=== PATIENT | female | born 1990 | race Caucasian/White ===

== ENCOUNTER 2021-07-20 02:34 | Emergency (ER) | payer MEDICAID ==
[~2021-07-20] VITALS: Ht 165.1 cm; Wt 127.0 kg
[2021-07-20] MEDS ORDERED: ACETAMINOPHEN 325MG TABLET PO ONE (03:00)
[2021-07-20] MEDS ORDERED: MORPHINE SULFATE 4 MG/ML CPJ (NOT FOR IM USE) IV ONE (03:45)
[2021-07-20] MEDS ORDERED: ONDANSETRON HCL 4MG/2ML INJ IV ONE (03:45)
[2021-07-20 03:53] LABS: BASOPHILS % 0.6 % (0.0-2.0); EOSINOPHILS % 1.4 % (0.0-5.0); HEMATOCRIT. 43.3 % (36.0-48.0); LYMPHOCYTES % 24.1 % (20.0-50.0); MEAN CORPUSCULAR HEMOGLOBIN 29.4 pg (28.0-32.0); MEAN CORPUSCULAR VOLUME 84.5 fL (81.0-99.0); MEAN PLATELET VOLUME 7.9 fl (7.4-10.4); NEUTROPHILS % 66.9 % (40.0-76.0); PLATELET 289 x1000/uL (130-400); RED BLOOD CELL COUNT 5.12 mill/uL (4.2-5.4); RED CELL DISTRIBUTION WIDTH 12.8 % (11.6-14.6)
[2021-07-20 04:14] LABS: CLARITY URINE CLOUDY (CLEAR); COLOR URINE RED (YELLOW); KETONES URINE NEGATIVE (NEGATIVE); LEUKOCYTE ESTERASE URINE 1+ (NEGATIVE); NITRITE URINE NEGATIVE (NEGATIVE); OCCULT BLOOD URINE 3+ (NEGATIVE); PROTEIN URINE 3+ (NEGATIVE); SPECIFIC GRAVITY URINE 1.008 (1.005-1.030); UROBILINOGEN URINE 0.2 E.U./dL (0.2-1.0)
[2021-07-20 04:20] LABS: CHLORIDE 108 mEq/L (98-107)
[2021-07-20 04:31] LABS: B-HCG QUANTITATIVE < 1 mIU/mL (<3)
[2021-07-20] MEDS ORDERED: NAPR-1176 MT (06:02)
[2021-07-20] MEDS ORDERED: KETOROLAC 15MG/ML VIAL IV ONE (06:15)
[2021-07-20 06:25] VITALS: BP 110/74
== END 2021-07-20 06:44 | disposition home or self-care (01) ==
LOC: ER 02:34
DX: R10.2 Pelvic and perineal pain (principal); R10.9 Unspecified abdominal pain; N93.9 Abnormal uterine and vaginal bleeding, unspecified; N83.201 Unspecified ovarian cyst, right side; D25.9 Leiomyoma of uterus, unspecified
CPT/HCPCS: 36415; 76830; 76856; 80053; 81003; 81025; 84702; 85025; 86850; 86900; 86901; 96374; 96375; 99284; J1885; J2270; J2405

== ENCOUNTER 2021-10-24 02:06 | Inpatient (IN) | payer MEDICAID ==
[~2021-10-24] VITALS: Ht 165.1 cm; Wt 136.6 kg
[~2021-10-24 02:06] MED LIST: NAPR-1176 MT
[2021-10-24] MEDS ORDERED: MORPHINE SULFATE 4 MG/ML CPJ (NOT FOR IM USE) IV STA (05:35)
[2021-10-24 06:03] LABS: CHLORIDE 104 mEq/L (98-107); HCG SCREEN NEGATIVE
[2021-10-24 06:04] LABS: BASOPHILS % 0.8 % (0.0-2.0); EOSINOPHILS % 1.9 % (0.0-5.0); HEMATOCRIT. 39.6 % (36.0-48.0); HEMOGLOBIN. 13.3 g/dL (12.0-16.0); LYMPHOCYTES % 23.7 % (20.0-50.0); MEAN CORPUSCULAR HEMOGLOBIN 29.3 pg (28.0-32.0); MEAN CORPUSCULAR VOLUME 87.4 fL (81.0-99.0); MEAN PLATELET VOLUME 7.9 fl (7.4-10.4); MONOCYTES % 5.7 % (2.0-8.0); NEUTROPHILS % 67.9 % (40.0-76.0); PLATELET 288 x1000/uL (130-400); RED BLOOD CELL COUNT 4.53 mill/uL (4.2-5.4); RED CELL DISTRIBUTION WIDTH 12.9 % (11.6-14.6)
[2021-10-24 06:50] LABS: CLARITY URINE CLEAR (CLEAR); COLOR URINE YELLOW (YELLOW); KETONES URINE NEGATIVE (NEGATIVE); LEUKOCYTE ESTERASE URINE NEGATIVE (NEGATIVE); NITRITE URINE NEGATIVE (NEGATIVE); OCCULT BLOOD URINE 3+ (NEGATIVE); PH URINE 5.5 (4.5-8.0); PROTEIN URINE 3+ (NEGATIVE); SPECIFIC GRAVITY URINE 1.018 (1.005-1.030); UROBILINOGEN URINE 0.2 E.U./dL (0.2-1.0)
[2021-10-24] MEDS ORDERED: MORPHINE SULFATE 4 MG/ML CPJ (NOT FOR IM USE) IV ONE (09:00)
[2021-10-24] MEDS ORDERED: PIPERACILLIN/TAZ 3.375G PREMIX 50 ML IV ONE (09:30)
[2021-10-24] MEDS ORDERED: PIPERACILLIN/TAZOBACTAM 3.375GM/50ML PREMIX IV ONE (09:30)
[2021-10-24] MEDS ORDERED: ACETAMINOPHEN 325MG TABLET PO PRN (13:15)
[2021-10-24] MEDS ORDERED: ONDANSETRON HCL 4MG/2ML INJ IV PRN (13:15)
[2021-10-24 14:00] VITALS: BP 143/97
[2021-10-24] MEDS: HYDROCODONE/ACETAMINOPHEN 5/325MG TABLET PO PRN ×2 (14:39→21:59)
[2021-10-24] MEDS ORDERED: NALOXONE HCL 0.4MG/ML VIAL IV PRN (16:00)
[2021-10-24] MEDS: KETOROLAC 30MG/ML VIAL IV PRN (17:33)
[2021-10-24] MEDS: MORPHINE SULFATE 2 MG/ML CPJ (NOT FOR IM USE) IV PRN (19:14)
[2021-10-25 03:28] VITALS: BP 123/64
[2021-10-25] MEDS: HYDROCODONE/ACETAMINOPHEN 5/325MG TABLET PO PRN ×2 (06:02→16:57)
[2021-10-25 06:19] VITALS: BP 128/62
[2021-10-25 08:00] VITALS: BP 137/71
[2021-10-25] MEDS: KETOROLAC 30MG/ML VIAL IV PRN ×2 (09:34→21:06)
[2021-10-25 12:00] VITALS: BP 120/79
[2021-10-25 16:00] VITALS: BP 126/51
[2021-10-25 20:00] VITALS: BP 137/76
[2021-10-26] VITALS: BP 127/72
[2021-10-26 04:00] VITALS: BP 121/62
[2021-10-26] MEDS: KETOROLAC 30MG/ML VIAL IV PRN ×2 (05:15→16:07)
[2021-10-26 08:00] VITALS: BP 132/77
[2021-10-26] MEDS: MORPHINE SULFATE 2 MG/ML CPJ (NOT FOR IM USE) IV PRN ×2 (08:06→19:58)
[2021-10-26] MEDS: HYDROCODONE/ACETAMINOPHEN 5/325MG TABLET PO PRN (11:44)
[2021-10-26 12:00] VITALS: BP 128/63
[2021-10-26 16:00] VITALS: BP 156/89
[2021-10-26 19:58] VITALS: BP 137/78
== END 2021-10-26 22:00 | disposition home or self-care (01) ==
LOC: ER 02:06 → 6EST 10:16 → ENRESERV 12:42
PROVIDERS: ADMIT Internal Medicine; ATTEND Internal Medicine
DX: K80.00 Calculus of gallbladder with acute cholecystitis without obstruction (principal); E44.1 Mild protein-calorie malnutrition; K76.0 Fatty (change of) liver, not elsewhere classified; E66.01 Morbid (severe) obesity due to excess calories; Z20.822 Contact with and (suspected) exposure to COVID-19; Z90.49 Acquired absence of other specified parts of digestive tract; Z68.43 Body mass index [BMI] 50.0-59.9, adult; Z79.899 Other long term (current) drug therapy
CPT/HCPCS: 36415; 74176; 76705; 78227; 80053; 81003; 84703; 85025; 99285; A9537; J1885; J2270; J2405; J2543

== ENCOUNTER 2022-06-01 16:42 | Emergency (ER) | payer MEDICAID ==
[~2022-06-01] VITALS: Ht 170.2 cm; Wt 122.0 kg
[2022-06-01 16:44] VITALS: BP 153/79
[2022-06-01] MEDS ORDERED: SODIUM CHLORIDE 0.9% 1,000 ML IV ONE (21:00)
[2022-06-01] MEDS ORDERED: OXYCODONE HCL/ACETAMINOPHEN 5/325MG TABLET PO ONE (21:45)
[2022-06-01] MEDS ORDERED: AMOXICILLIN/POTASSIUM CLAVULANATE 875/125MG TAB PO ONE (21:45)
[2022-06-01] MEDS ORDERED: T3 PO (21:49)
[2022-06-01] MEDS ORDERED: AMOX1TAB16 PO (21:49)
[2022-06-01 22:11] LABS: BASOPHILS % 0.5 % (0.0-2.0); EOSINOPHILS % 0.5 % (0.0-5.0); HEMATOCRIT. 35.5 % (36.0-48.0); HEMOGLOBIN. 12.2 g/dL (12.0-16.0); LYMPHOCYTES % 10.7 % (20.0-50.0); MEAN CORPUSCULAR HEMOGLOBIN 29.3 pg (28.0-32.0); MEAN CORPUSCULAR VOLUME 85.4 fL (81.0-99.0); MEAN PLATELET VOLUME 7.7 fl (7.4-10.4); NEUTROPHILS % 84.3 % (40.0-76.0); PLATELET 244 x1000/uL (130-400); RED BLOOD CELL COUNT 4.16 mill/uL (4.2-5.4)
[2022-06-01 22:21] LABS: CHLORIDE 105 mEq/L (98-107)
[2022-06-01 22:25] LABS: HCG SCREEN POSITIVE
== END 2022-06-02 | disposition home or self-care (01) ==
LOC: ER 16:42
DX: H60.11 Cellulitis of right external ear (principal); Z90.49 Acquired absence of other specified parts of digestive tract
CPT/HCPCS: 36415; 70480; 80048; 83605; 84145; 84703; 85025; 87040; 96360; 96361; 99291; J7030

== ENCOUNTER 2022-10-04 00:06 | Observation (INO) | payer MEDICAID ==
[~2022-10-04] VITALS: Ht 165.1 cm; Wt 128.4 kg
[~2022-10-04 00:06] MED LIST changes: +AMOX1TAB16 PO; +T3 PO
[2022-10-04] MEDS ORDERED: CEFAZOLIN 2,000 MG in DEXT 5% WATER 100 ML IV NR (01:30)
[2022-10-04] MEDS: LACTATED RINGERS 1,000 ML IV SCH ×2 (03:34→04:27)
[2022-10-04 04:13] LABS: CLARITY URINE CLOUDY (CLEAR); COLOR URINE YELLOW (YELLOW); KETONES URINE NEGATIVE (NEGATIVE); LEUKOCYTE ESTERASE URINE TRACE (NEGATIVE); NITRITE URINE NEGATIVE (NEGATIVE); OCCULT BLOOD URINE 3+ (NEGATIVE); PH URINE 5.5 (4.5-8.0); PROTEIN URINE 2+ (NEGATIVE); SPECIFIC GRAVITY URINE 1.009 (1.005-1.030); UROBILINOGEN URINE 0.2 E.U./dL (0.2-1.0)
== END 2022-10-04 09:50 | disposition home or self-care (01) ==
LOC: 8 EST LDRP 00:06
PROVIDERS: ADMIT Obstetrics & Gynecology; ATTEND Obstetrics & Gynecology
DX: O99.891 Other specified diseases and conditions complicating pregnancy (principal); M54.50 Low back pain, unspecified; O26.893 Other specified pregnancy related conditions, third trimester; R10.2 Pelvic and perineal pain; Z3A.33 33 weeks gestation of pregnancy
CPT/HCPCS: 59025; 96361; 96365; 81003; 76818; 76805; J0690; J7060; G0378 ×2; 96360; 99281

== ENCOUNTER 2022-10-09 13:19 | Observation (INO) | payer MEDICAID ==
[~2022-10-09] VITALS: Ht 165.1 cm; Wt 136.1 kg
[2022-10-10] MEDS ORDERED: LABE100T9 PO (20:17)
[2022-10-10] MEDS ORDERED: PREN-176 PO (20:17)
== END 2022-10-09 15:45 | disposition home or self-care (01) ==
LOC: 8 EST LDRP 13:19
PROVIDERS: ADMIT Obstetrics & Gynecology; ATTEND Obstetrics & Gynecology
DX: O42.913 Preterm premature rupture of membranes, unspecified as to length of time between rupture and onset of labor, third trimester (principal); O26.893 Other specified pregnancy related conditions, third trimester; N89.8 Other specified noninflammatory disorders of vagina; O62.9 Abnormality of forces of labor, unspecified; O36.8330 Maternal care for abnormalities of the fetal heart rate or rhythm, third trimester, not applicable or unspecified; Z3A.32 32 weeks gestation of pregnancy
CPT/HCPCS: 59025; 76815; 76818; G0378; 99281; G0379

== ENCOUNTER 2022-10-10 19:41 | Observation (INO) | payer MEDICAID ==
[~2022-10-10] VITALS: Ht 165.1 cm; Wt 136.1 kg
[2022-10-10] MEDS ORDERED: PREN-176 PO (20:17)
[2022-10-10] MEDS ORDERED: LABE100T9 PO (20:17)
== END 2022-10-10 23:00 | disposition home or self-care (01) ==
LOC: 8 EST LDRP 19:41
PROVIDERS: ADMIT Specialist; ATTEND Specialist
DX: O36.8130 Decreased fetal movements, third trimester, not applicable or unspecified (principal); Z3A.33 33 weeks gestation of pregnancy; Z98.891 History of uterine scar from previous surgery
CPT/HCPCS: 59025; 76815; 76818; G0378; 99281

== ENCOUNTER 2022-11-12 23:33 | Emergency (ER) | payer MEDICAID ==
[~2022-11-12] VITALS: Ht 165.1 cm; Wt 127.0 kg
[~2022-11-12 23:33] MED LIST changes: -AMOX1TAB16 PO; +IBUP-2028 PO; +LABE100T9 PO; -NAPR-1176 MT; +PREN-176 PO; -T3 PO
[2022-11-12 23:52] VITALS: O2SAT 98
[2022-11-13 00:37] VITALS: TEMP 98.4
[2022-11-13 01:05] LABS: BASOPHILS % 0.5 % (0.0-2.0); EOSINOPHILS % 2.1 % (0.0-5.0); HEMATOCRIT. 30.2 % (36.0-48.0); HEMOGLOBIN. 10.1 g/dL (12.0-16.0); LYMPHOCYTES % 16.8 % (20.0-50.0); MEAN CORPUSCULAR HEMOGLOBIN 31.7 pg (28.0-32.0); MEAN CORPUSCULAR VOLUME 94.9 fL (81.0-99.0); MEAN PLATELET VOLUME 7.2 fl (7.4-10.4); MONOCYTES % 7.8 % (2.0-8.0); NEUTROPHILS % 72.8 % (40.0-76.0); PLATELET 211 x1000/uL (130-400); RED BLOOD CELL COUNT 3.18 mill/uL (4.2-5.4); RED CELL DISTRIBUTION WIDTH 14.5 % (11.6-14.6)
[2022-11-13 01:16] LABS: CHLORIDE 108 mEq/L (98-107)
[2022-11-13] MEDS ORDERED: MORPHINE SULFATE 4 MG/ML CPJ (NOT FOR IM USE) IV STA (01:17)
[2022-11-13] MEDS ORDERED: SODIUM CHLORIDE 0.9% 1,000 ML IV ONE (01:30)
[2022-11-13 01:38] LABS: HCG SCREEN POSITIVE
[2022-11-13] MEDS ORDERED: IOHEXOL-300 100 ML BOTTLE ONE (03:10)
[2022-11-13 03:48] LABS: CLARITY URINE CLEAR (CLEAR); COLOR URINE YELLOW (YELLOW); KETONES URINE NEGATIVE (NEGATIVE); LEUKOCYTE ESTERASE URINE NEGATIVE (NEGATIVE); NITRITE URINE NEGATIVE (NEGATIVE); OCCULT BLOOD URINE 3+ (NEGATIVE); PH URINE 5.5 (4.5-8.0); PROTEIN URINE 1+ (NEGATIVE); SPECIFIC GRAVITY URINE 1.008 (1.005-1.030); UROBILINOGEN URINE 0.2 E.U./dL (0.2-1.0)
[2022-11-13] MEDS ORDERED: MORPHINE SULFATE 4 MG/ML CPJ (NOT FOR IM USE) IV ONE (05:15)
[2022-11-13 05:30] VITALS: BP 144/77; PULSE 80; RESP 18
== END 2022-11-13 05:45 | disposition left against medical advice (07) ==
LOC: ER 23:33
DX: R10.9 Unspecified abdominal pain (principal); Z98.890 Other specified postprocedural states; Z90.49 Acquired absence of other specified parts of digestive tract; Z53.29 Procedure and treatment not carried out because of patient's decision for other reasons
CPT/HCPCS: 99285; 74177; 96374; 96361; 80053; 81003; 84703; 85025; 36415; 96376; Q9967; J2270; J7030

== ENCOUNTER 2024-04-26 08:26 | Emergency (ER) | payer MEDICAID ==
[~2024-04-26] VITALS: Ht 165.1 cm; Wt 122.0 kg
[2024-04-26 08:35] VITALS: O2SAT 99
[2024-04-26 08:41] VITALS: TEMP 98.7; O2SAT 99
[2024-04-26 10:07] LABS: BASOPHILS % 0.8 % (0.0-2.0); EOSINOPHILS % 1.4 % (0.0-5.0); HEMATOCRIT. 41.4 % (36.0-48.0); HEMOGLOBIN. 13.6 g/dL (12.0-16.0); LYMPHOCYTES % 20.1 % (20.0-50.0); MEAN CORPUSCULAR HEMOGLOBIN 28.2 pg (28.0-32.0); MEAN CORPUSCULAR HGB CONC 32.9 g/dL (31.0-37.0); MEAN CORPUSCULAR VOLUME 85.9 fL (81.0-99.0); MEAN PLATELET VOLUME 7.7 fl (7.4-10.4); MONOCYTES % 6.1 % (2.0-8.0); NEUTROPHILS % 71.6 % (40.0-76.0); PLATELET 227 x1000/uL (130-400); RED BLOOD CELL COUNT 4.82 mill/uL (4.2-5.4); RED CELL DISTRIBUTION WIDTH 13.4 % (11.6-14.6)
[2024-04-26 10:19] LABS: CHLORIDE 106 mEq/L (98-107); POTASSIUM 4.6 mEq/L (3.5-5.1); SODIUM 139 mEq/L (136-145)
[2024-04-26 10:21] LABS: CARBON DIOXIDE 28 mEq/L (21-32)
[2024-04-26 10:22] LABS: CALCIUM 9.2 mg/dL (8.7-10.4)
[2024-04-26 10:26] LABS: CREATININE 1.1 mg/dL (0.6-1.0)
[2024-04-26 10:27] LABS: GLUCOSE 86 mg/dL (70-105); UREA NITROGEN BLOOD 13 mg/dL (9-23)
[2024-04-26 10:28] LABS: ALANINE AMINOTRANSFERASE 17 IU/L (10-49); ALBUMIN 3.9 g/dL (3.2-4.8); ASPARTATE AMINOTRANSFERASE 21 IU/L (<34)
[2024-04-26 10:29] LABS: BILIRUBIN DIRECT 0.1 mg/dL (<=3.0); BILIRUBIN TOTAL 0.5 mg/dL (0.1-1.0); PROTEIN TOTAL 6.8 g/dL (6.0-8.3)
[2024-04-26 10:46] VITALS: BP 146/92; PULSE 64; RESP 16
[2024-04-26] MEDS: KETOROLAC 30MG/ML VIAL IM ONE (10:46)
[2024-04-26 10:47] LABS: CLARITY URINE CLEAR (CLEAR); COLOR URINE YELLOW (YELLOW); GLUCOSE URINE NEGATIVE (NEGATIVE); KETONES URINE NEGATIVE (NEGATIVE); LEUKOCYTE ESTERASE URINE NEGATIVE (NEGATIVE); NITRITE URINE NEGATIVE (NEGATIVE); OCCULT BLOOD URINE 3+ (NEGATIVE); PROTEIN URINE 4+ (NEGATIVE); UROBILINOGEN URINE 0.2 E.U./dL (0.2-1.0)
[2024-04-26] MEDS ORDERED: DICY-18 MT (11:22)
[2024-04-26] MEDS ORDERED: ONDA-239 PO (11:22)
[2024-04-26 12:13] LABS: SQUAMOUS EPITHELIAL CELL URINE 1+ /lpf (RARE/1+)
[2024-04-26 12:15] LABS: BACTERIA URINE 1+; MUCUS URINE TRACE /lpf (< = 2+)
[2024-04-26 12:16] LABS: WBC URINE 0-2 /hpf (0-2)
[2024-04-26] MEDS ORDERED: PANT40TA51 MT (22:07)
== END 2024-04-26 11:34 | disposition home or self-care (01) ==
LOC: ER 08:26
DX: K29.70 Gastritis, unspecified, without bleeding (principal); A08.4 Viral intestinal infection, unspecified; Z90.49 Acquired absence of other specified parts of digestive tract; Z79.899 Other long term (current) drug therapy
CPT/HCPCS: 80076; 80048; 81003; 81025; 83690; 85025; 36415; 96372; 99283; J1885; Z7610

== ENCOUNTER 2024-04-26 17:50 | Emergency (ER) | payer MEDICAID ==
[~2024-04-26] VITALS: Ht 165.1 cm; Wt 122.0 kg
[~2024-04-26 17:50] MED LIST changes: +DICY-18 MT; +ONDA-239 PO
[2024-04-26 18:05] VITALS: O2SAT 100
[2024-04-26 18:48] LABS: BASOPHILS % 0.6 % (0.0-2.0); EOSINOPHILS % 1.3 % (0.0-5.0); HEMATOCRIT. 40.3 % (36.0-48.0); HEMOGLOBIN. 13.5 g/dL (12.0-16.0); LYMPHOCYTES % 19.4 % (20.0-50.0); MEAN CORPUSCULAR HEMOGLOBIN 28.4 pg (28.0-32.0); MEAN CORPUSCULAR HGB CONC 33.5 g/dL (31.0-37.0); MEAN CORPUSCULAR VOLUME 84.8 fL (81.0-99.0); MEAN PLATELET VOLUME 8.2 fl (7.4-10.4); MONOCYTES % 4.6 % (2.0-8.0); NEUTROPHILS % 74.1 % (40.0-76.0); PLATELET 241 x1000/uL (130-400); RED BLOOD CELL COUNT 4.76 mill/uL (4.2-5.4); RED CELL DISTRIBUTION WIDTH 13.2 % (11.6-14.6)
[2024-04-26 18:56] LABS: CHLORIDE 105 mEq/L (98-107); POTASSIUM 4.2 mEq/L (3.5-5.1); SODIUM 139 mEq/L (136-145)
[2024-04-26 18:57] LABS: CALCIUM 8.8 mg/dL (8.7-10.4); CARBON DIOXIDE 24 mEq/L (21-32)
[2024-04-26 19:02] LABS: GLUCOSE 124 mg/dL (70-105); UREA NITROGEN BLOOD 20 mg/dL (9-23)
[2024-04-26 19:04] LABS: ALANINE AMINOTRANSFERASE 18 IU/L (10-49); ALBUMIN 3.9 g/dL (3.2-4.8); ASPARTATE AMINOTRANSFERASE 22 IU/L (<34); BILIRUBIN TOTAL 0.3 mg/dL (0.1-1.0); PROTEIN TOTAL 6.9 g/dL (6.0-8.3)
[2024-04-26 19:11] LABS: BILIRUBIN DIRECT < 0.1 mg/dL (<=3.0); CREATININE 1.5 mg/dL (0.6-1.0)
[2024-04-26] MEDS: MORPHINE SULFATE 4 MG/ML INJ (FOR IV/IM USE) IV STA (20:09)
[2024-04-26] MEDS: SODIUM CHLORIDE 0.9% 1,000 ML IV ONE (20:09)
[2024-04-26] MEDS ORDERED: PANT40TA51 MT (22:07)
[2024-04-26 22:46] VITALS: BP 124/47; PULSE 55; RESP 15; TEMP 36.78072; O2SAT 100
[2024-04-26] MEDS ORDERED: IOHEXOL-300 100 ML BOTTLE ONE (23:29)
== END 2024-04-26 22:47 | disposition home or self-care (01) ==
LOC: ER 17:50
DX: R10.13 Epigastric pain (principal); R11.2 Nausea with vomiting, unspecified; Z90.49 Acquired absence of other specified parts of digestive tract; Z98.890 Other specified postprocedural states; Z79.899 Other long term (current) drug therapy
CPT/HCPCS: 99285; 74177; 96374; 96361; 80076; 80048; 83690; 85025; 36415; Q9967; J2270; J7030

== ENCOUNTER 2025-03-18 01:31 | Emergency (ER) | payer MEDICAID ==
[~2025-03-18] VITALS: Ht 165.1 cm; Wt 123.0 kg
[~2025-03-18 01:31] MED LIST changes: +PANT40TA51 MT
[2025-03-18 01:38] VITALS: O2SAT 99
[2025-03-18 02:38] LABS: BASOPHILS % 0.6 % (0.0-2.0); EOSINOPHILS % 1.7 % (0.0-5.0); HEMATOCRIT. 39.8 % (36.0-48.0); HEMOGLOBIN. 13.3 g/dL (12.0-16.0); LYMPHOCYTES % 21.9 % (20.0-50.0); MEAN PLATELET VOLUME 8.1 fl (7.4-10.4); MONOCYTES % 5.8 % (2.0-8.0); NEUTROPHILS % 70.0 % (40.0-76.0); PLATELET 217 x1000/uL (130-400); RED BLOOD CELL COUNT 4.64 mill/uL (4.2-5.4); RED CELL DISTRIBUTION WIDTH 13.6 % (11.6-14.6)
[2025-03-18 02:48] LABS: UREA NITROGEN BLOOD 24.0 mg/dL (9-23)
[2025-03-18 03:04] LABS: CREATININE 2.0 mg/dL (0.6-1.0)
[2025-03-18 03:13] LABS: CLARITY URINE CLEAR (CLEAR); COLOR URINE YELLOW (YELLOW); PH URINE 5.0 (4.5-8.0); SPECIFIC GRAVITY URINE 1.012 (1.005-1.030)
[2025-03-18 03:14] LABS: GLUCOSE URINE NEGATIVE (NEGATIVE); KETONES URINE NEGATIVE (NEGATIVE); NITRITE URINE NEGATIVE (NEGATIVE); OCCULT BLOOD URINE 3+ (NEGATIVE); PROTEIN URINE 3+ (NEGATIVE); UROBILINOGEN URINE 0.2 E.U./dL (0.2-1.0)
[2025-03-18 03:15] LABS: LEUKOCYTE ESTERASE URINE TRACE (NEGATIVE)
[2025-03-18 03:28] LABS: SQUAMOUS EPITHELIAL CELL URINE FEW /lpf (RARE/1+)
[2025-03-18 03:34] LABS: RBC URINE 0-2 /hpf (0-2); WBC URINE 0-2 /hpf (0-2)
[2025-03-18 03:37] LABS: BACTERIA URINE NONE SEEN
[2025-03-18 04:11] LABS: CREATININE 2.0 mg/dL (0.6-1.0); UREA NITROGEN BLOOD 24 mg/dL (9-23)
[2025-03-18 04:13] LABS: ASPARTATE AMINOTRANSFERASE 16 IU/L (<34); BILIRUBIN DIRECT < 0.1 mg/dL (<=3.0); BILIRUBIN TOTAL 0.3 mg/dL (0.1-1.0); PROTEIN TOTAL 6.6 g/dL (6.0-8.3)
[2025-03-18 04:14] LABS: HCG SCREEN NEGATIVE
[2025-03-18] MEDS: KETOROLAC 30MG/ML VIAL IM ONE (04:31)
[2025-03-18] MEDS: PANTOPRAZOLE 40MG DR TABLET PO ONE (04:31)
[2025-03-18] MEDS ORDERED: PANT40TA51 MT (05:27)
[2025-03-18 05:30] VITALS: BP 144/94; PULSE 66; RESP 18; TEMP 36.9; O2SAT 99
== END 2025-03-18 05:35 | disposition home or self-care (01) ==
LOC: ER 01:31
DX: N28.9 Disorder of kidney and ureter, unspecified (principal); R10.32 Left lower quadrant pain; R19.7 Diarrhea, unspecified; Z90.49 Acquired absence of other specified parts of digestive tract; Z79.899 Other long term (current) drug therapy
CPT/HCPCS: 99285; 74176; 80076; 80048; 81003; 81025; 84703; 83690; 85025; 36415; 96372; J1885